=== PATIENT | male | born 1960 | race Hispanic/Latino ===

== ENCOUNTER → 2019-04-16 | Outpatient (CLI) | payer BC, OTHER | END | disposition home or self-care (01) | LOC: OIH 15:19 | PROVIDERS: ATTEND Family Medicine | DX: M54.2 Cervicalgia (principal); Z87.891 Personal history of nicotine dependence | CPT/HCPCS: 72040 ==

== ENCOUNTER → 2019-09-23 | Outpatient (CLI) | payer BC | END | disposition home or self-care (01) | LOC: OIH 08:56 | PROVIDERS: ATTEND Family Medicine | DX: M19.022 Primary osteoarthritis, left elbow (principal); M19.012 Primary osteoarthritis, left shoulder | CPT/HCPCS: 73030; 73080 ==

== ENCOUNTER → 2019-09-24 | Outpatient (CLI) | payer BC ==
[~2019-09-24] MED LIST: REGADENOSON 0.4 MG/5 ML PF SYG IVP SCH
== END | disposition home or self-care (01) ==
LOC: RAH 08:23
PROVIDERS: ATTEND Family Medicine
DX: R07.9 Chest pain, unspecified (principal)
CPT/HCPCS: 78452; 93017; 96374; A9500 ×2; J2785

== ENCOUNTER 2020-07-20 13:40 | Emergency (ER) | payer BC ==
[2020-07-20] MEDS ORDERED: KETOROLAC TROMETHAMINE 60 MG/2 ML VIAL ONE (13:58)
[2020-07-20] MEDS ORDERED: CYCLOBENZAPRINE HCL 10 MG TABLET ONE (13:58)
== END 2020-07-20 14:56 | disposition home or self-care (01) ==
LOC: EDH 13:40
DX: S39.012A Strain of muscle, fascia and tendon of lower back, initial encounter (principal); E11.9 Type 2 diabetes mellitus without complications; Z90.49 Acquired absence of other specified parts of digestive tract; V49.60XA Unspecified car occupant injured in collision with unspecified motor vehicles in traffic accident, initial encounter; Y93.89 Activity, other specified; Y92.89 Other specified places as the place of occurrence of the external cause; Y99.8 Other external cause status
CPT/HCPCS: 72100; 96372; 99284; J1885

== ENCOUNTER 2023-02-17 19:56 | Emergency (ER) | payer OTHER ==
[~2023-02-17] VITALS: Ht 182.9 cm; Wt 98.0 kg
[2023-02-17 21:15] LABS: BASOPHILS # (AUTO) 0.06 K/uL (0.00-0.20); BASOPHILS % (AUTO) 0.5 % (0.0-5.0); EOSINOPHILS # (AUTO) 0.39 K/uL (0.00-0.70); HEMATOCRIT 44.1 % (42-54); IMMATURE GRANULOCYTE ABSOLUTE 0.04 K/uL (0-1); LYMPHOCYTES # (AUTO) 4.2 K/uL (1.0-4.8); LYMPHOCYTES % (AUTO) 32.6 % (21.0-51.0); MEAN CORPUSCULAR HEMOGLOBIN 30.4 pg (27.0-33.0); MEAN CORPUSCULAR HGB CONC 33.1 g/dL (32.0-36.0); MEAN CORPUSCULAR VOLUME 91.7 fL (79-99); NEUTROPHILS # (AUTO) 7.1 K/uL (1.8-7.7); NEUTROPHILS % (AUTO) 55.6 % (40.0-77.0); PLATELET COUNT (AUTO) 222 K/uL (130-400); RED BLOOD CELL COUNT(AUTO) 4.81 MIL/uL (4.50-6.20); RED CELL DISTRIBUTION WIDTH 13.1 % (11.0-15.5); WHITE BLOOD COUNT (AUTO) 12.8 K/uL (4.8-10.8)
[2023-02-17 21:27] LABS: CREATININE 0.7 mg/dL (0.5-1.5); POTASSIUM 3.4 mmol/L (3.5-5.1)
[2023-02-17] MEDS ORDERED: DIATR MEGLU/DIATRIZOATE SODIUM 30 ML BOTTLE ONE (21:30)
[2023-02-17] MEDS ORDERED: MORPHINE 4 MG SYG IVP ONE (21:30)
[2023-02-17] MEDS ORDERED: LACTATED RINGERS 1000ML 1,000 ML IV ONE (21:30)
[2023-02-17 21:35] LABS: BILIRUBIN,TOTAL 0.4 mg/dL (0.2-1.0); TOTAL PROTEIN, SERUM 5.8 g/dL (6.0-8.3)
[2023-02-18] MEDS ORDERED: ONDANSETRON 4MG INJ ONE (00:09)
[2023-02-18] MEDS ORDERED: IOHEXOL-350 75 ML VIAL IV ONE (00:26)
[2023-02-18] MEDS ORDERED: ONDANSETRON 4MG INJ IVP ONE (00:30)
[2023-02-18] MEDS ORDERED: MORPHINE 4 MG SYG IVP ONE (00:30)
[2023-02-18] MEDS ORDERED: DIATR MEGLU/DIATRIZOATE SODIUM 30 ML BOTTLE ONE ×2 (01:04→01:37)
[2023-02-18 08:15] LABS: APPEARANCE,URINE CLEAR (CLEAR); BILIRUBIN,URINE NEGATIVE (NEGATIVE); COLOR,URINE LIGHT-YELLOW (YELLOW); GLUCOSE, URINE (UA) 30 mg/dL (NEGATIVE); KETONES,URINE NEGATIVE (NEGATIVE); LEUKOCYTE ESTERASE ,URINE 250 Leu/uL (NEGATIVE); NITRATE,URINE NEGATIVE (NEGATIVE); OCCULT BLOOD,URINE NEGATIVE (NEGATIVE); PROTEIN,URINE NEGATIVE (NEGATIVE); UROBILINOGEN,URINE 0.2 mg/dL (0.2-1.0)
[2023-02-18 08:17] LABS: ADD UA MICROSCOPIC YES
[2023-02-18 08:26] LABS: BACTERIA,URINE RARE /HPF (None Seen); MUCUS,URINE RARE LPF (None Seen); SQUAMOUS EPITHELIAL CELL,UR RARE /HPF (0-2)
[2023-02-18] MEDS ORDERED: KETOROLAC 15MG/ML VIAL (15MG/ML) IV ONE (08:30)
[2023-02-18 10:56] VITALS: BP 133/76; PULSE 70; RESP 17; O2SAT 99
[2023-02-18] MEDS ORDERED: METR-172 PO (10:57)
[2023-02-18] MEDS ORDERED: HYOS0.124 SL (10:57)
[2023-02-18] MEDS ORDERED: CIPR-278 PO (10:57)
== END 2023-02-18 11:01 | disposition home or self-care (01) ==
LOC: EDH 19:56
DX: K52.9 Noninfective gastroenteritis and colitis, unspecified (principal); R10.32 Left lower quadrant pain; I10 Essential (primary) hypertension; E78.00 Pure hypercholesterolemia, unspecified; E11.9 Type 2 diabetes mellitus without complications; Z90.89 Acquired absence of other organs
CPT/HCPCS: 99285; 74178; 96374; 71045; 96361; 82550; 84484; 80053; 83690; 85025; 87088; 81001; 36415; 93005; 96375; 96376; Q9963 ×3; J7030; J2270 ×2; J2405; J1885; Q9967